=== PATIENT | male | born 1950 | race Caucasian/White ===

== ENCOUNTER 2019-11-24 10:38 | Day surgery (SDC) | payer MEDICARE ==
[~2019-11-24] VITALS: Ht 180.3 cm; Wt 106.4 kg
--- NOTE | ~2019-11-24 | HEMODYNAMI ---
PATIENT:SHANELL COVINGTON MEDICAL RECORD: [id number] : 48 LOCATION:[facility] ADMISSION DATE: 11/24/19 Generatedon:11/24/201914:29 Patient name: SHANELL COVINGTON Patient #: [id number] : 1950 Date of study: 11/24/2019 Page: Of Hemodynamic Procedure Report Patient Data Patient Demographics Procedure consent was obtained First Name: SHANELL Gender: Male Last Name: ADRIA : 1950 Patient #: [id number] Age: 69 year(s) Race: SSN: [id number] Additional ID: [id number] Contact details Address: [address] [place] [address] State: [place] City: [place] Zip code: [address] Past Medical History Allergies: No known allergies Admission Admission Data Admission Date: 11/24/2019 Admission Time: 10:38 Arrival Date: 11/24/2019 Arrival Time: 0:00 Admit Source: Other Insurance Payor: Medicare [facility] #: [id number] Height (in.): 70.87 BSA: 2.25 (m2) Height (cm.): 180 BMI: 32.72 (kg/m2) Weight (lbs.): 233.69 Weight (kg.): 106 Lab Results Lab Result Date: 11/24/2019 Lab Result Time: 0:00 Biochemistry Name Units Result Min Max BUN mg/dl 15 --(--*-)-- 7 18 Creatinine mg/dl 1.4 --(----)*- 0.6 1.3 eGFR ml/min 53 *-(----)-- 90 120 NONAFRICAN CBC Name Units Result Min Max Hemoglobin g/dl 14 --(*---)-- 13.5 17.5 Procedure Procedure Types Cath Procedure Diagnostic Procedure LHC LHC w/Coronaries Sedation Charges Moderate Sedation up to 30 minutes PCI Procedure Coronary Stent Coronary Stent Initial Hemochron ACT Test Procedure Description Procedure Date Procedure Date: 11/24/2019 Procedure Start Time: 13:51 Procedure End Time: 14:27 Procedure Staff Name Function Ishmael Cano MD Performing Physician Damaris Foss RT Monitor Justin Gregorio RN Nurse Yoko Sanchez RT Scrub Jenn Garcia RT Shuttle Operator Indication Unstable angina Procedure Data Cath Procedure Fluoroscopy Diagnostic fluoroscopy Total fluoroscopy Time: 5.2 time: 5.2 min min Diagnostic fluoroscopy Total fluoroscopy dose: dose: 1471 mGy 1471 mGy Contrast Material Contrast Material Type Amount (ml) Isovue 300 114 Entry Location Entry Primary Successful Side Size Upsize Upsize Entry Closure Succes sful Closure Location (Fr) 1 (Fr) 2 (Fr) Remarks Device Remarks Femoral Right 5 Fr 6 Fr Exoseal artery Short Estimated blood loss: 10 ml Diagnostic catheters Device Type Used For End Catheter Placement MULTIPACK JL 4.0 5Fr Left Coronary catheter Angiography MULTIPACK 3DRC 5Fr Right Coronary catheter Angiography MULTIPACK Pigtail 5 Fr LV Angiography catheter Procedure Complications No complications Procedure Medications Medication Administration Route Dosage Oxygen etCO2 Nasal cannula 2 l/min Heparin Flush Bag added to field 2 bags (1000units/500ml NS) 0.9% NaCl I.V. 100 ml/hr Lidocaine 2% added to field 20 Radial Cocktail added to field 1 syringe (Verapamil 2mg/Nitro 400mcg/Heparin 1500units) Fentanyl I.V. 50 mcg Versed I.V. 1 mg Fentanyl I.V. 50 mcg Versed I.V. 1 mg Fentanyl I.V. 50 mcg Radial Cocktail added to field 1 syringe (Verapamil 2mg/Nitro 400mcg/Heparin 1500units) Fentanyl I.V. 50 mcg Heparin Bolus I.V. 95038 units Plavix P.O. 600 mg Hemodynamics Rest BSA: 2.25 (m2) HGB: 14 (g/dl) O2 Consumption: Estimated: 247.79 (ml/min) O2 Cons umption indexed: Estimated:110.13 (ml/min/m) Heart Rate: 55 (bpm) Pressure Samples Time Site Value (mmHg) Purpose Heart Use Rate(bpm) 14:09 LV 119/6,20 Snapshot 60 Gradients Valve Time Site Site Mean SEP/DFP Peak To Heart Use 1 2 (mmHg) (sec/min) Peak Rate (mmHg) (bpm) Aortic 14:10 LV AO 59 Snapshots Pre Cath Intra NCS Post Cath Vital Signs Time Heart Resp SPO2 etCO2 NIBP Rhythm Pain Sedation Rate (ipm) (%) (mmHg) (mmHg) Status Level (bpm) 13:29:30 53 20 0 Measuring NSR 0 (11) 10(A) , No pain 13:30:09 55 17 89 0 132/92(96) NSR 0 (11) 10(A) , No pain 13:35:08 53 17 29.8 Measuring NSR 0 (11) 10(A) , No pain 13:35:12 53 17 88 31.3 Disturbed NSR 0 (11) 10(A) , No pain 13:39:34 51 17 33.6 121/79(99) NSR 0 (11) 10(A) , No pain 13:43:44 52 16 29.8 122/76(90) NSR 0 (11) 10(A) , No pain 13:47:54 53 17 97 33.6 118/77(92) NSR 0 (11) 10(A) , No pain 13:52:04 51 16 96 33.6 115/72(85) NSR 0 (11) 10(A) , No pain 13:56:13 52 17 96 30.6 110/70(83) NSR 0 (11) 10(A) , No pain 14:00:19 50 18 97 34.3 107/74(86) NSR 0 (11) 10(A) , No pain 14:04:23 50 16 96 33.6 112/79(89) NSR 0 (11) 10(A) , No pain 14:08:29 55 16 96 22.4 114/75(94) NSR 0 (11) 10(A) , No pain 14:12:39 59 17 94 35.1 121/75(91) NSR 0 (11) 10(A) , No pain 14:16:53 57 17 95 25.3 115/68(85) NSR 0 (11) 10(A) , No pain 14:21:05 60 17 95 31.3 115/73(86) NSR 0 (11) 10(A) , No pain 14:25:12 64 17 96 35 119/75(95) NSR 0 (11) 10(A) , No pain Medications Time Medication Route Dose Verified Delivered Reason Not es Effectiveness by by 13:28:03 Oxygen etCO2 2 l/min Ishmael Justin Per physician Nasal Jerome Gregorio RN cannula 13:28:11 Heparin Flush added 2 bags Ishmael Justin used for Bag to Jerome Gregorio RN procedure (1000units/500ml field NS) 13:28:18 0.9% NaCl I.V. 100 Ishmael Justin Per physician ml/hr Jerome Gregorio RN 13:28:26 Lidocaine 2% added 20ml Ishmael Justin for local to vial Jerome Gregorio RN anesthetic field 13:28:35 Radial Cocktail added 1 Ishmael Justin used for (Verapamil to syringe Jerome Gregorio RN procedure 2mg/Nitro field 400mcg/Heparin 1500units) 13:49:31 Fentanyl I.V. 50 mcg Ishmael Justin for sedation Jerome Gregorio RN 13:49:38 Versed I.V. 1 mg Ishmael Justin for sedation Jerome Gregorio RN 14:02:32 Fentanyl I.V. 50 mcg Ishmael Justin for sedation Jerome Gregorio RN 14:02:37 Versed I.V. 1 mg Ishmael Justin for sedation Jerome Gregorio RN 14:08:04 Fentanyl I.V. 50 mcg Ishmael Justin for sedation Jerome Gregorio RN 14:08:21 Radial Cocktail added 1 Ishmael Justin used for (Verapamil to syringe Jerome Gregorio RN procedure 2mg/Nitro field 400mcg/Heparin 1500units) 14:12:55 Fentanyl I.V. 50 mcg Ishmael Justin for sedation Jerome Gregorio RN 14:13:09 Heparin Bolus I.V. 67376 Ishmael Justin for units Jerome Gregorio RN anticoagulation 14:22:03 Plavix P.O. 600 mg Ishmael Justin for Jerome Gregorio RN antiplatelet therapy Procedure Log Time Note 13:16:12 Arrival Date: 11/24/2019 12:00:00 AM 13:16:40 Admit Source: Other 13:16:44 Insurance Payor : Medicare 13:17:06 Patient Height : 70.87 inches 13:17:13 Patient Weight : 233.69 lbs 13:17:54 Lab Result : Hemoglobin 14 g/dl 13:17:54 Lab Result : eGFR NONAFRICAN 53 ml/min 13:17:54 Lab Result : BUN 15 mg/dl 13::54 Lab Result : Creatinine 1.4 mg/dl 13:19:15 Indication : Unstable angina 13:19:28 Procedure Status Elective Heart Cath (OP). 13:19:31 Damaris Friasblade RT(R) (CV) sent for patient. Start room use. 13:19:40 Time tracking: Regular hours (M-F 7:00 - 5:00) 13:19:51 Plan of Care:Hemodynamics will remain stable., Cardiac rhythm will remain stable., Comfort level will be maintained., Respiratory function will remain adequate., Patient/ family verbilizes understanding of procedure., Procedure tolerated without complication.. 13:20:02 Patient received from Pre/Post Procedure Room to [facility] 2 Alert and oriented. Tansferred to table in Supine position. 13:20:04 Signed procedure consent form obtained from patient. 13:20:05 Warm blankets applied, and ulysses hugger turned on for patient comfort. 13:27:40 Vital chart was started 13:27:48 Correct patient and procedure confirmed by team. 13:27:48 ECG and BP/O2 sat monitors applied to patient. 13:27:50 Baseline sample Acquired. 13:27:58 Rhythm: sinus rhythm 13:28:00 Full Disclosure recording started 13:28:01 - 13:28:03 Oxygen 2 l/min etCO2 Nasal cannula was administered by Justin Gregorio RN ; Per physician; Verbal order read back and verified. 13:28:07 H&P Date Dictated: 11/24/2019 H&P Addendum completed by physician on day of procedure. (MUST COMPLETE FOR ALL OUTPATIENTS), New H&P dictated by physician.. 13:28:11 Heparin Flush Bag (1000units/500ml NS) 2 bags added to field was administered by Justin Gregorio RN; used for procedure; Verbal order read back and verified. 13:28:12 Pre-procedure instructions explained to patient. 13:28:12 Pre-op teaching completed and patient verbalized understanding. 13:28:15 Family in patients room. 13:28:18 0.9% NaCl 100 ml/hr I.V. was administered by Justin Gregorio RN; Per physician; Verbal order read back and verified. 13:28:18 Patient NPO since Midnight. 13:28:26 Lidocaine 2% 20ml vial added to field was administered by Justin Gregorio RN; for local anesthetic; Verbal order read back and verified. 13:28:29 Patient allergic to No known allergies 13:28:35 Radial Cocktail (Verapamil 2mg/Nitro 400mcg/Heparin 1500units) 1 syring e added to field was administered by Justin Gregorio RN; used for procedure; Verbal order read back and verified. 13:28:36 Is the patient allergic to Iodine/contrast media? No. 13:28:39 Was the patient premedicated? Yes 13:28:42 Is patient on blood thinner?No 13:28:52 If diabetic: On Metformin? No 13:28:54 ----Pre-sedation anethsthesia assessment.---- 13:28:59 Previous problem with sedation/anesthesia? No ? 13:29:02 Snore? Yes 13:29:07 Sleep apnea? No 13:29:10 Deviated septum? Unknown 13:29:18 Opens mouth fully? Yes 13:29:21 Sticks out tongue? Yes 13:29:25 Airway obstruction? No ? 13:29:39 Dentures? Yes in tight 13:29:49 Pre procedure: right dorsailis pedis pulse 2+ Normal; easily identifiable; not easily obliterated 13:29:59 IV patent on arrival in left hand with 0.9% NaCl at KVO. 13:30:12 Right Radial & Right Groin area was prepped with chlora-prep and draped in sterile fashion 13:30:14 Alarms reviewed by R. N. 13:30:14 Sharps counted by scrub and verified by R.N. 13:30:23 Use device set Radial Dx or PCI 13:30:25 ACIST Syringe (17382) opened to sterile field. 13:30:25 Medline Cath Pack ([id number]) opened to sterile field. 13:30:26 Bag Decanter (2002S) opened to sterile field. 13:30:27 ACIST Hand Control (88420) opened to sterile field. 13:30:27 ACIST Manifold (56591) opened to sterile field. 13:30:29 MBrace Wrist Support (568930385) opened to sterile field. 13:30:30 NEEDLE Cook 21G 4cm Radial (T97727) opened to sterile field. 13:30:32 EMERALD Guide Wire (689-801) opened to sterile field. 13:30:33 SHEATH 6FR RAIN (0772699) opened to sterile field. 13:41:07 Stress Test: no; N/A ? 13:43:06 Risk of Mortality: 0.1 13:43:09 Risk of blood transfusion: 0.1 13:43:13 Risk of DANNY: 0.6 13:43:26 Lab results completed and on chart. 13:43:30 Zero performed for pressure channel P1 13:48:22 Physician arrived 13:48:23 --------ALL STOP TIME OUT------ 13:48:24 Final Timeout: patient, procedure, and site verified with staff and physician. All members of the team are in agreement. 13:48:31 Right Radial & Right Groin site verified by team. 13:48:38 Fire Safety Assessment: A--An alcohol-based skin anteseptic being used preoperatively., C--Open oxygen or nitrous oxide is being used., D--An ESU, laser, or fiber-optic light is being used. 13:48:44 Physical assessment completed. ASA score P 2 - A patient with mild systemic disease as per Ishmael Cano MD. 13:48:51 3a) 45-59 Moderately reduced kidney function. 13:48:56 Maximum allowable contrast dose (3.7 X eGFR X 0.75)147 ml. 13:49:03 Sedation plan: IV Moderate Sedation Medication:Versed, Fentanyl 13:49:31 Fentanyl 50 mcg I.V. was administered by Justin Gregorio RN; for sedation ; Verbal order read back and verified. 13:49:38 Versed 1 mg I.V. was administered by Justin Gregorio RN; for sedation; Verbal order read back and verified. 13:51:34 Procedure started. 13:51:44 Local anesthetic to right radial artery with Lidocaine 2% by Ishmael Cano MD.INITIAL ACCESS ONLY 13:58:58 unable to access the right radial, moving to the right groin. 13:59:10 Local anesthetic to right femoral artery with Lidocaine 2% by Ishmael gerber MD.ADDITIONAL ACCESS 13:59:40 Use device set Multipack Set 13:59:59 SHEATH 5FR Caney (FRD892) opened to sterile field. 14:00:01 DIAGNOSTIC Multipack 5Fr catheter set (OV1427) opened to sterile field. 14:00:24 A 5 Fr sheath was inserted into the Right Femoral artery 14:02:22 A MULTIPACK JL 4.0 5Fr catheter was advanced over the wire and used for Left Coronary Angiography. 14:02:32 Fentanyl 50 mcg I.V. was administered by Justin Gregorio RN; for sedation ; Verbal order read back and verified. 14:02:37 Versed 1 mg I.V. was administered by Justin Gregorio RN; for sedation; Verbal order read back and verified. 14:04:26 LCA angiography performed. 14:04:31 Injector settings: Ml/sec: 3, Volume: 6, 14:06:23 Catheter removed. 14:06:47 A MULTIPACK 3DRC 5Fr catheter was advanced over the wire and used for Right Coronary Angiography. 14:07:40 RCA angiography performed. 14:08:04 Fentanyl 50 mcg I.V. was administered by Justin Gregorio RN; for sedation ; Verbal order read back and verified. 14:08:04 Injector settings: Ml/sec: 3, Volume: 6, 14:08:21 Radial Cocktail (Verapamil 2mg/Nitro 400mcg/Heparin 1500units) 1 syring e added to field was administered by Justin Gregorio RN; used for procedure; Verbal order read back and verified. Wasted 14:08:21 Catheter removed. 14:08:29 A MULTIPACK Pigtail 5 Fr catheter was advanced over the wire and used for LV Angiography. 14:08:38 LV gram done using LESLIE 14:08:42 Injector settings: Ml/sec: 5, Volume: 15, 14:10:10 EF : 55 % 14:10:12 LV hemodynamics recorded. 14:10:36 Catheter removed. 14:10:38 Proceeding to intervention. 14:10:45 SHEATH 6FR Caney (UOQ592) opened to sterile field. 14:10:46 INFLATOR Merit BasixCompak (PT8628) opened to sterile field. 14:10:48 TUBING High Pressure Extension Tubing (Cano) (GI6395H) opened to sterile field. 14:10:51 GUIDE 6FR EBU 3.75 catheter ([id number]) opened to sterile field. 14:11:04 WHISPER 300cm guide wire ([id number]) opened to sterile field. 14:12:34 ACC Pre-intervention HALLE Flow is 3. 14:12:48 Sheath upsized to a 6 Fr Short. 14:12:55 Fentanyl 50 mcg I.V. was administered by Justin Gregorio RN; for sedation ; Verbal order read back and verified. 14:13:07 6 Fr EBU3.75 guide catheter was inserted over the wire 14:13:09 Heparin Bolus 70446 units I.V. was administered by Justin Gregorio RN; fo r anticoagulation; Verbal order read back and verified. 14:13:17 HIMSOOM869 wire advanced. 14:15:08 Pre PCI Site: Agdaagux pLAD has 80% stenosis. 14:17:08 Wire advanced across lesion. 14:19:27 Place stent Inflation Number: 1 A HANH RX 3.0 x 15 stent ([id number]) was prepped and advanced across the Prox LAD . The stent was deployed at 14 JENNY for 0:26 (min:sec) . 14:20:06 Stent catheter was removed intact over wire. 14:20:08 ACC Post-intervention HALLE Flow is 3. 14:20:18 Post PCI Site: Agdaagux pLAD has 0% stenosis. 14:20:23 Wire removed. 14:20:24 Guide catheter removed. 14:20:43 EXOSEAL 6Fr (EX600) opened to sterile field. 14:20:51 Tegaderm 4 x 4 (1626W) opened to sterile field. 14:21:10 Contrast amount:Isovue 300 114ml. 14:21:22 Sheath removed intact; hemostasis achieved with Exoseal to the Right Femoral artery. 14:21:31 Fluoroscopy time 05.20 minutes. 14:21:33 Procedure ended.(Physican Out) 14:22:03 Plavix 600 mg P.O. was administered by Justin Gregorio RN; for antiplatelet therapy; Verbal order read back and verified. 14:22:05 Fluoroscopy dose: 1471 mGy 14:22:05 Flurop Dose total: 1471 14:22:13 Dose Area Product 12179 mGy/cm. 14:22:18 Maximum allowable dose exceeded? No. 14:22:19 Sharps counted by scrub and verified by R.N. 14:22:28 Post-op/insertion site Right Femoral artery dressed using a 4 x 4 and Tegaderm. 14:22:34 Post-procedure physical assessment completed. ASA score P 2 - A patient with mild systemic disease as per Ishmael Cano MD. 14:22:51 Post right radial artery:stable 14:22:58 Post procedure rhythm: unchanged. 14:23:02 Estimated blood loss: 10 ml 14:23:05 Post procedure instruction explained to patient.Patient verbalizes understanding. 14:23:06 Patient needs reinforcement of post procedure teaching. 14:24:09 Procedure type changed to Cath procedure, Diagnostic procedure, LHC, C w/Coronaries, Sedation Charges, Moderate Sedation up to 30 minutes, PCI procedure, Coronary Stent, Coronary Stent Initial, Hemochron ACT Test 14:24:14 Procedure and supply charges have been captured, reviewed, submitted an d are correct. 14:25:16 Procedure Complication : No complications 14:25:20 Vital chart was stopped 14::27 [facility] Findings: MVD- PCI performed (see procedure note) 14:25:30 See physician's report for complete and final results. 14:25:33 Report given to Pre/Post Procedure Room. 14:25:38 Patient transfered to Pre/Post Procedure Room with Stretcher. 14:26:57 ACT drawn and resulted at OUT OF RANGE seconds. (normal therapeutic range 180-240 seconds). 14:27:14 Procedure ended. 14:27:14 Full Disclosure recording stopped 14::26 ACC-PCI Only Patient was given prescriptions, or instructed by Ishmael Cano MD to start/continue the following medications upon discharge: Plavix 14::28 End room use (Document Last) Intervention Summary Intervention Notes Time ActionType Lesion and Equipment Used Action# Pressure Duration Attributes 14:19:27 Place stent Prox LAD HANH RX 3.0 x 1 14 00:26 15 stent ([id number]) Device Usage Item Name Manufacture Quantity Catalog Hospital Part [facility] Lot# / Number Charge Number Stock Stock Serial# Code ACIST Syringe Acist 1 72909 265344 284493 793132 20 (30529) Medical Systems Inc Medline Cath Medline 1 [id number] 293951 31070 791710 5 Pack ([id number]) Bag Decanter Microtek 1 2001S 458239 93985 680399 5 () Medical Inc. ACIST Hand Acist 1 41674 932534 917074 068773 5 Control Medical (27758) Systems Inc ACIST Manifold Acist 1 06075 835985 807159 506753 5 (37004) Medical Systems Inc MBrace Wrist Advanced 1 140-0250-00 299200 57961 987569 5 Support Vascular ([id number]) Dynamics NEEDLE Avenue Right [place] [facility] 1 [id number] 969115 006548 038242 5 21G 4cm Radial (Q28740) EMERALD Guide Cardinal 1 502-455 030750 398967 724515 5 Wire (502-455) Health SHEATH 6FR Cardinal 1 8889698 209844 1681167 217709 5 RAIN (7660573) Health SHEATH 5FR Terumo 1 UGD842 262161 394472 280139 5 Caney (MEX104) DIAGNOSTIC Cardinal 1 CR3104 981549 99418 400666 30 Multipack 5Fr Health catheter set (GO0053) MULTIPACK JL Cardinal 1 683756 5 4.0 5Fr Health catheter MULTIPACK 3DRC Cardinal 1 857371 5 5Fr catheter Health MULTIPACK Cardinal 1 818954 5 Pigtail 5 Fr Health catheter SHEATH 6FR Terumo 1 ODE355 812862 609102 741794 40 Caney (SPN122) INFLATOR Merit Merit 1 VO9279 357682 495685 933702 15 BasixCompak Medical (TR2915) TUBING High Merit 1 [id number] 498240 34404 187238 10 Pressure Medical Extension Tubing (Cano) ([id number]) GUIDE 6FR EBU Medtronic 1 [id number] 609588 76551 518155 1 3.75 catheter ([id number]) WHISPER 300cm Bourgeois 1 [id number] 106544 476691 665101 5 guide wire Vascular ([id number]) HANH RX 3.0 x Medtronic 1 [id number] 328661 8967697 061054 5 [id number] 15 stent ([id number]) EXOSEAL 6Fr Cardinal 1 EX600 792484 915847 501629 10 (EX600) Health Tegaderm 4 x 4 3M 1 1626W 986620 270067 834497 5 (1626W) Signature Audit [place] Stage Time Signature Unsigned Intra-Procedure 11/24/2019 Damaris 2:27:56 PM Pipo THOMSON(R) (CV) Intra-Procedure 11/24/2019 Justin Gregorio 2:28:36 PM RN Intra-Procedure 11/24/2019 Ishmael Cano MD 2:29:21 PM Signatures Performing Physician : Signature : Ishmael Cano MD Date : Time : Monitor : Damaris Signature : Pipo RT Date : Time : Nurse : Justin Gregorio RN Signature : Date : Time : [address] [address]
[2019-11-24] MEDS ORDERED: CARDURA2 MG PO (11:02)
[2019-11-24] MEDS ORDERED: NYSTATIN1 PWD TOPICAL (11:03)
[2019-11-24] MEDS ORDERED: MULTI-DAY VITAM1 TAB PO (11:05)
[2019-11-24 11:16] VITALS: BP 126/72; Ht 180.3 cm; Wt 106.4 kg
[2019-11-24 11:39] LABS: BASOPHILS 0.3 % (0-2); EOSINOPHILS 1.9 % (0-7); HEMATOCRIT 40.3 % (42.0-54.0); IMMATURE GRANULOCYTES 0.1 % (0-5); LYMPHOCYTES 23.4 % (15-50); MCH 32.5 pg (26.0-34.0); MCHC 34.7 g/dL (31.0-37.0); MCV 93.5 fL (80.0-100.0); MEAN PLATELET VOLUME 9.1 fL (7.4-10.4); NEUTROPHILS 69.3 % (40-80); PLATELET COUNT 189 10x3/uL (130-400); RBC 4.31 10x6/uL (4.20-6.10); RDW 12.5 % (11.5-14.5); WBC 6.8 10x3/uL (4.8-10.8)
[2019-11-24 12:04] LABS: ANION GAP 10.1 mmol/L (8-16); CALCIUM 8.8 mg/dL (8.5-10.1); CHOL - HDL RATIO 3.2 ratio (2.3-4.9); CREATININE - SERUM 1.4 mg/dL (0.6-1.3); LDL-HDL RATIO 1.7 ratio (1.5-3.5); POTASSIUM - SERUM 4.1 mmol/L (3.5-5.1)
--- NOTE | 2019-11-24 14:36 | NUR ---
PT ARRIVED BY STRETCHER. PLACED ON MONITORS. ASSESSMENT COMPLETED. VSS AT THIS TIME. CALL LIGHT WITHIN REACH. FAMILY AT BEDSIDE.
[2019-11-24] MEDS ORDERED: BAYER CHEWABLE81 MG PO (14:49)
[2019-11-24] MEDS ORDERED: PLAVIX75 MG PO (14:49)
[2019-11-24] MEDS ORDERED: PRAVACHOL20 MG PO (14:49)
--- NOTE | 2019-11-24 14:50 | NUR ---
RIGHT GROIN DRESSING C/D/I. NO S/S OF HEMATOMA NOTED. CALL LIGHT WITHIN REACH. VSS AT THIS TIME. DENIES NAUSEA/PAIN.
--- NOTE | 2019-11-24 15:20 | NUR ---
RIGHT GROIN DRESSING C/D/I. NO S/S OF HEMATOMA NOTED. CALL LIGHT WITHIN REACH. VSS. PT VOIDED 200cc OF CLEAR YELLOW URINE NOTED IN URINAL. NO NEEDS AT THIS TIME. DENIES NAUSEA/PAIN.
--- NOTE | 2019-11-24 15:50 | NUR ---
RIGHT GROIN DRESSING C/D/I. NO S/S OF HEMATOMA NOTED. CALL LIGHT WITHIN REACH. VSS AT THIS TIME. DENIES NAUSEA/PAIN.
--- NOTE | 2019-11-24 16:20 | NUR ---
RIGHT GROIN DRESSING C/D/I. NO S/S OF HEMATOMA NOTED. CALL LIGHT WITHIN REACH. VSS AT THIS TIME. FAMILY AT BEDSIDE. PT RESTING COMFORTABLY.
--- NOTE | 2019-11-24 16:50 | NUR ---
RIGHT GROIN DRESSING C/D/I. NO S/S OF HEMATOMA NOTED. CALL LIGHT WITHIN REACH. VSS AT THIS TIME. CALL LIGHT WITHIN REACH. NO NEEDS AT THIS TIME. RESTING COMFORTABLY.
--- NOTE | 2019-11-24 17:30 | NUR ---
RIGHT GROIN DRESSING C/D/I. NO S/S OF HEMATOMA NOTED. PT'S HEAD OF BED INC TO 30 DEGREES. TOLERATED WELL. SET UP WITH SANDWICH TRAY AND DRINK. DENIES NAUSEA/PAIN.
--- NOTE | 2019-11-24 17:59 | NUR ---
RIGHT GROIN DRESSING C/D/I. NO S/S OF HEMATOMA NOTED. TOLERATED WELL. VSS AT THIS TIME. PIV D/C'D WITH CATH TIP INTACT. PT INSTRUCTED TO GET UP AND DRESSED AT THIS TIME. FAMILY AT BEDSIDE TO ASSIST.
--- NOTE | 2019-11-24 18:10 | NUR ---
DISCUSSED DISCHARGE INSTRUCTIONS WITH PT AND PT'S FAMILY. THEY VOICED UNDERSTANDING. PT AMBULATED TO RESTROOM. VOIDED WITHOUT DIFFICULTY. STEADY GAIT NOTED.
--- NOTE | 2019-11-24 18:20 | NUR ---
PT TAKEN OUT TO VEHICLE BY WHEELCHAIR. NO S/S OF DISTRESS NOTED. ALL BELONGINGS AND PAPERWORK IN HAND. RIGHT GROIN DRESSING C/D/I. NO S/S OF HEMATOMA NOTED.
== END 2019-11-24 18:20 | disposition home or self-care (01) ==
LOC: D.CATH 10:38
PROVIDERS: ATTEND Internal Medicine Cardiovascular Disease
DX: I20.0 Unstable angina (principal); R07.9 Chest pain, unspecified; R06.00 Dyspnea, unspecified
CPT/HCPCS: 93458; C9600